=== PATIENT | female | born 1995 | race Caucasian/White ===

== ENCOUNTER 2020-10-22 09:19 | Inpatient (IN) ==
[2020-10-22] MEDS ORDERED: LIDOCAINE HCL 50 ML VIAL PERI PRN (09:21)
[2020-10-22] MEDS ORDERED: RINGER'S SOLUTION,LACTATED 1,000 ML IV ONE (09:21)
[2020-10-22] MEDS ORDERED: OXYTOCIN/0.9 % SODIUM CHLORIDE 30 UNITS/500 ML BAG IV ONE ×2 (09:21→14:14)
[2020-10-22] MEDS ORDERED: BUTORPHANOL TARTRATE 2 MG/ML VIAL IV PRN (09:21)
[2020-10-22] MEDS ORDERED: RINGER'S SOLUTION,LACTATED 1,000 ML IV PRN (09:21)
[2020-10-22] MEDS ORDERED: ONDANSETRON 4 MG TAB.RAPDIS PO PRN (09:21)
[2020-10-22] MEDS ORDERED: BUPIVACAINE HCL/0.9 % NACL/PF 250 ML EP PRN (09:52)
[2020-10-22] MEDS ORDERED: NALOXONE HCL 1 MG/1 ML SYRG IV PRN (09:52)
[2020-10-22] MEDS ORDERED: ONDANSETRON HCL/PF 2 MG/ML VIAL IV PRN (09:52)
[2020-10-22] MEDS ORDERED: BUPIVACAINE HCL/PF 30 ML VIAL EP SCH (10:00)
--- NOTE | 2020-10-22 10:05 | ANES ---
Anesthesia Pre Procedure Eval Vitals/Labs: Last Vital Signs Temp 36.6 C 10/22/20 09:53 Pulse 97 10/22/20 09:53 Resp 18 10/22/20 09:53 BP 128/83 10/22/20 09:53 Pulse Ox 99 10/22/20 09:53 HOME MEDICATIONS albuterol sulfate 90 mcg/actuation aerosol inhaler 2 inh IH Q4H PRN 05/22/20 [Last Taken Unknown] pediatric multivitamin no.76 2 tab PO DAILY tab 05/22/20 [Last Taken Unknown] famotidine 20 mg tablet 20 mg PO BID #60 tab 08/05/20 [Last Taken Unknown] fluoxetine 20 mg capsule 20 mg PO DAILY #30 cap 09/09/20 [Last Taken 09/24/20] hydroxyzine HCl 25 mg tablet 25 mg PO HS #30 tab 10/04/20 [Last Taken Unknown] cyclobenzaprine 10 mg tablet 10 mg PO TID PRN #20 tab 10/07/20 [Last Taken Un known] Allergies/Adverse Reactions: Allergies Allergy/AdvReac Type Severity Reaction Status Date / Time No Known Allergies Allergy Verified 10/21/20 14:13 - Planned Procedure Planned Procedure: Labor Epidural Medication List Reviewed:: Yes Allergies Verified: Yes Medical History (Last Reviewed 10/22/20 @ 10:05 by Avelino Longo CRNA) Anxiety and depression Chronic back pain Surgical History (Last Reviewed 10/22/20 @ 10:05 by Avelino Longo CRNA) No pertinent past surgical history Family History (Last Reviewed 10/22/20 @ 10:05 by Avelino Longo CRNA) Grandmother Cancer, Onset Age: 50 breast cancer Grandfather Cancer, Onset Age: 67 lung with paramjit to brain Mother Alive and well Father Alive and well - Anesthesia Assessment and Plan ASA Class: PS, II Anesthesia Type Plan: Epidural
--- NOTE | 2020-10-22 10:32 | ANES ---
Post Anesthesia Assessment - Vital Signs Vitals: Last Vital Signs Temp 36.6 C 10/22/20 10:10 Pulse 95 10/22/20 10:10 Resp 18 10/22/20 10:10 BP 123/80 10/22/20 10:10 Pulse Ox 100 10/22/20 10:10 Airway Patency: Normal - Mental Status Level Of Consciousness: Awake - N/V Assessment Nausea/Vomiting Presence: None Dehydration:: No
--- NOTE | 2020-10-22 10:32 | ANES ---
Anesthesia Procedure Note Procedure Note: ANESTHESIA PROCEDURE NOTE Date of Procedure: 10/22/2020. Time of procedure: 1015. Performed by: Avelino Longo CRNA Drafter Geophysical: None. Preprocedure diagnosis: Active labor. Post procedure diagnosis: Same. Procedure: Insertion of labor epidural. Indications: The patient is a 24-year-old female in active labor requesting labor epidural for pain management. Findings: See below. Details of the procedure: The patient was placed in a sitting position. DuraPrep as well as Betadine swabs X3 was applied to the patient's back. Patient was then draped in a sterile fashion. Lidocaine 1% was infiltrated to the skin and subcutaneous tissues at the level of the L3-4 interspace. The epidural space was identified using a 18-gauge Tuohy needle with [id number] technique. Epidural catheter was inserted to a depth of 12 centimeters at skin. Negative test dose was elicited using 3 mL of 1.5% preservative-free lidocaine plus epinephrine 1 200,000. The epidural catheter was then taped and secured in place. A loading dose of 8 mL of 0.25% preservative-free bupivacaine was administered to the epidural catheter after negative aspiration for blood and CSF. EBL: Minimal. Fluids: N/A. Specimen: N/A. Post procedure condition: The patient tolerated the procedure well. No complications were noted. Thank you for this consultation. Avelino Longo CRNA
--- NOTE | 2020-10-22 11:29 | ANES ---
Post Anesthesia Discharge - Transfer of Care Transfer of Care handoff given to nurse: Yes - Discharge from PACU Discharge from PACU when meets criteria: Yes - Anesthesia Post Op Note Anesthesia Post Op Note: I was called to the room 201 for breakthrough pain. She was complaining of pain in the lower left abdomen with contraction. In lateral and semifowler position 10 mL of bupivacaine 0.25% preservative-free was administered through the epidural catheter after a negative aspiration was confirmed. She is extremely anxious but the pain portion of the assessment appears to be accurate.
[2020-10-22 11:52] LABS: Cocaine Ur Negative (NEGATIVE); Urine Barbiturate Negative (NEGATIVE); Urine Benzodiazepines Negative (NEGATIVE); Urine Opiates Negative (NEGATIVE); Urine PCP Negative (NEGATIVE)
[2020-10-22 11:56] LABS: Urine THC Positive (NEGATIVE)
[2020-10-22] MEDS ORDERED: LIDOCAINE HCL/EPINEPHRINE 20 ML VIAL ONE (12:02)
--- NOTE | 2020-10-22 12:07 | HP ---
Chief Complaint - Chief Complaint Date of Service: 10/22/20 Time of Service: 11:56 Chief Complaint: Labor History of Present Illness: 24 year old at 40w 1d who presented to labor and delivery in labor. She denied vb or lof. She reports regular, painful ctx. Fetus is active. Medical History (Last Reviewed 10/22/20 @ 11:59 by Fay Foote MD) Anxiety and depression Chronic back pain Surgical History: Surgical History (Last Reviewed 10/22/20 @ 11:59 by Fay Foote MD) No pertinent past surgical history Family History: Family History (Last Reviewed 10/22/20 @ 11:59 by Fay Foote MD) Grandmother Cancer, Onset Age: 50 breast cancer Grandfather Cancer, Onset Age: 67 lung with paramjit to brain Mother Alive and well Father Alive and well Social History: (Last Reviewed 10/22/20 @ 11:59 by Fay Foote MD) Social History: adopted: No Marital status: Single household members: children current occupational status: unemployed current occupational exposures/hazards: No Highest level of school completed/degree received: high school graduate Service: No Tobacco: Smoking Status: Never smoker Alcohol: alcohol intake: never Substance Use: substance use type: does not use Dietary Habits: caffeine: Yes Type: carbonated beverages Review Of Systems (GEN) - Review of Systems Generalized/Overall Review: Present: No Symptoms Reported Genitourinary: Present: Other - painful ctx Endocrine: Present: No Symptoms Reported Allergies/Adverse Reactions: Allergies Allergy/AdvReac Type Severity Reaction Status Date / Time No Known Allergies Allergy Verified 10/21/20 14:13 Home Medications: HOME MEDICATIONS albuterol sulfate 90 mcg/actuation aerosol inhaler 2 inh IH Q4H PRN 05/22/20 [Last Taken Unknown] pediatric multivitamin no.76 2 tab PO DAILY tab 05/22/20 [Last Taken Unknown] famotidine 20 mg tablet 20 mg PO BID #60 tab 08/05/20 [Last Taken Unknown] fluoxetine 20 mg capsule 20 mg PO DAILY #30 cap 09/09/20 [Last Taken 09/24/20] hydroxyzine HCl 25 mg tablet 25 mg PO HS #30 tab 10/04/20 [Last Taken Unknown] cyclobenzaprine 10 mg tablet 10 mg PO TID PRN #20 tab 10/07/20 [Last Taken Unkn own] Exam - Exam Vital Signs: Vital Signs - Last Taken Temp 36.6 C 10/22/20 10:10 Pulse 95 10/22/20 10:10 Resp 18 10/22/20 10:10 BP 123/80 10/22/20 10:10 Pulse Ox 100 10/22/20 10:10 Constitutional: Present: Alert, Oriented x3, Cooperative, No distress ENT Exam: Present: hearing grossly normal Eye Exam: bilateral eye: normal inspection Neck: Present: normal inspection Back Exam: Present: normal inspection Breasts: Present: Exam deferred Respiratory: Present: lungs clear, normal breath sounds, no respiratory distress Cardiovascular/Chest: Present: regular rate, rhythm Abdomen: Present: Normal bowel sounds, soft, nontender, nondistended, no rebound tenderness /Rectal: Present: Other - 5/80/-2 AROM for clear fluid Extremity: Present: non-tender, no calf tenderness Skin Exam: Present: normal color, warm/dry, no cyanosis Neurologic: Present: alert, normal mood/affect, oriented x 3 Appearance: Present: appropriate appearance, appropriate insight, neat, no memory impairment Eye contact: Present: good eye contact, normal speech Thoughts: Present: normal thought pattern Diagnostic Studies: Laboratory Results Blood Type A Negative 10/22/20 09:05 Antibody Screen Positive 10/22/20 09:05 Assessment/Plan - Narrative Narrative: 24 year old at 40w 1d 1. Active labor. AROM for augmentation of labor. Straight cath performed with only 5 mL of urine obtained. Reassess cervical exam and if no change two hours after AROM will start pitocin 2. GBS negative: prophylaxis not indicated 3. History of THC use this : UDS negative on admission to L&D 4. Rh negative: s/p Rhogam - Assessment/Plan (1) Active labor at term Problem: Acute (2) 40 weeks gestation of Problem: Acute (3) Depression affecting Problem: Acute (4) RhD negative Problem: Acute (5) Anxiety Problem: Acute (6) Marijuana use Problem: Acute (7) Asthma Problem: Acute Qualifiers: Asthma severity: mild Asthma persistence: intermittent Asthma complication type: uncomplicated Qualified Code(s): J45.20 - Mild intermittent asthma, uncomplicated
--- NOTE | 2020-10-22 12:30 | ANES ---
Anesthesia Procedure Note Procedure Note: ANESTHESIA PROCEDURE NOTE Date of Procedure: 10/22/2020. Time of procedure: 1210. Performed by: Avelino Longo CRNA Zoning Administrator: None. Preprocedure diagnosis: Active labor. Post procedure diagnosis: Same. Procedure: Removal and reinsertion of labor epidural. Indications: The patient is a 24-year-old female in active labor with a labor epidural that appears to be intravenous. Findings: See below. Details of the procedure: The patient was placed in a sitting position. Dark red blood was noted to the epidural catheter. The epidural catheter was removed intact. DuraPrep as well as Betadine swabs X3 was applied to the patient's back. Patient was then draped in a sterile fashion. Lidocaine 1% was infiltrated to the skin and subcutaneous tissues at the level of the L3-4 interspace. The epidural space was identified using a 18-gauge Tuohy needle with [id number] technique. Epidural catheter was inserted to a depth of 3 centimeters at skin. Negative test dose was elicited using 3 mL of 1.5% preservative-free lidocaine plus epinephrine 1 200,000. The epidural catheter was then taped and secured in place. EBL: Minimal. Fluids: N/A. Specimen: N/A. Post procedure condition: The patient tolerated the procedure well. No complications were noted. Thank you for this consultation. Avelino Longo CRNA
[2020-10-22] MEDS ORDERED: GLYCERIN/WITCH HAZEL LEAF 40 APPL BOX TP PRN (14:14)
[2020-10-22] MEDS ORDERED: HYDROcodone/ACETAMINOPHEN 1 EACH TABLET PO PRN ×2 (14:14)
[2020-10-22] MEDS ORDERED: BENZOCAINE/MENTHOL 81 SPRAY CAN TP PRN (14:14)
[2020-10-22] MEDS ORDERED: BISACODYL 10 MG SUPP.RECT RC PRN (14:14)
[2020-10-22] MEDS ORDERED: diphenhydrAMINE HCL 25 MG CAPSULE PO PRN (14:14)
[2020-10-22] MEDS ORDERED: IBUPROFEN 800 MG TABLET PO PRN (14:14)
[2020-10-22] MEDS ORDERED: SENNOSIDES 8.6 MG TABLET PO PRN (14:14)
[2020-10-22] MEDS ORDERED: HYDROCORTISONE 30 APPL TUBE TP PRN (14:14)
[2020-10-22] MEDS ORDERED: ALBUTEROL SULFATE 2.5 MG/0.5 ML VIAL.NEB IH PRN (14:15)
--- NOTE | 2020-10-22 14:24 | OR ---
Operative Report - Dictated Report Narrative: Date of delivery: 10/22/2020 Time of delivery: 1359 Gender: female weight: 3267 grams APGARS: 8/9 Procedure: Description of the procedure: The patient is a 24 year old at 40w 1d who presented to L&D in labor. She underwent AROM for augmentation and progressed to complete dilation. She delivered a viable female infant in direct OA presentation. There was a loose nuchal cord x4 which was reduced prior to delivery. The shoulders delivered without any difficulty followed by the rest of the infant. Cord clamping was delayed for 60 seconds due to vigorous infant. The cord was clamped and cut. Cord blood was collected. There was avulsion of the umbilical cord. The placenta was removed manually in several fragments. There were no lacerations. EBL: 100 mL Complications: none Specimens: cord blood History for MU Definition: * The number of deliveries resulting in a live the patient experienced prior to current hospitalization * The previous delivery of live twins or any live multiple gestation is considered one live event. *If primagravida or nulliparous is documented select zero for the number of previous live births. Live Events: 1
[2020-10-22] MEDS ORDERED: ceFAZolin SODIUM 1 GM VIAL IV ONE (15:24)
[2020-10-22] MEDS ORDERED: ceFAZolin SODIUM 2 GM in DEXTROSE 5 % IN WATER 50 ML IV SCH ×2 (16:15)
[2020-10-22] MEDS ORDERED: RHO(D) IMMUNE GLOBULIN 1,500 UNIT SYRINGE IM ONE (17:28)
[2020-10-22] MEDS: DOCUSATE SODIUM 100 MG CAPSULE PO SCH (20:56)
[2020-10-22] MEDS ORDERED: hydrOXYzine HCL 25 MG TABLET PO SCH (21:00)
--- NOTE | 2020-10-23 08:21 | PN ---
Subjective - Date and Time Seen Date: 10/23/20 Time: 08:16 Subjective Narrative: Patient without complaints Objective Objective Narrative: See vital signs - Review of Systems Generalized/Overall Review: Reports: No Symptoms Reported Misc: All systems neg except as marked - Vitals Vitals: Last Vital Signs Temp 36.3 C 10/23/20 07:00 Pulse 75 10/23/20 07:00 Resp 18 10/23/20 07:00 BP 104/58 10/23/20 07:00 Pulse Ox 99 10/23/20 07:00 - Abnormal Lab Findings Abnormal Lab Findings: Abnormal Lab Results 10/22/20 Range/Units 10:55 Urine Marijuana (THC) Positive H (NEGATIVE) - Exam Constitutional: Present: Alert, Oriented x3, Cooperative, No distress Abdomen: Present: soft, nontender, nondistended - fundus is firm Extremity: Present: non-tender, no calf tenderness Skin Exam: Present: normal color, warm/dry, no cyanosis Neurologic: Present: alert, normal mood/affect, oriented x 3 Appearance: Present: appropriate appearance, appropriate insight, neat, no memory impairment Eye contact: Present: cooperative, good eye contact, normal speech Thoughts: Present: normal thought pattern Cauti Physician Documentation - Urinary Catheter Management Urethral (Roberto) Urethral Indwelling: No Date of Insertion: 10/22/20 Time of Insertion: 10:45 Date of Removal: 10/22/20 Time of Removal: 11:30 Assessment/Plan Plan Narrative: PPD 1 s/p Doing well Discharge today if baby cleared by peds - Problems/Diagnosis (1) Active labor at term Problem: Acute (2) 40 weeks gestation of Problem: Acute (3) Depression affecting Problem: Acute (4) RhD negative Problem: Acute (5) Anxiety Problem: Acute (6) Marijuana use Problem: Acute (7) Asthma Problem: Acute Qualifiers: Asthma severity: mild Asthma persistence: intermittent Asthma complication type: uncomplicated Qualified Code(s): J45.20 - Mild intermittent asthma, uncomplicated
[2020-10-23] MEDS: DOCUSATE SODIUM 100 MG CAPSULE PO SCH (08:42)
[2020-10-23] MEDS ORDERED: MEDROXYPROGESTERONE ACET 150 MG/ML SYRG IM ONE (09:00)
[2020-10-23] MEDS ORDERED: FLUoxetine HCL 20 MG CAPSULE PO SCH (09:00)
[2020-10-23] MEDS ORDERED: MULTIVITAMINS 1 TAB TAB.CHEW PO SCH (09:00)
[2020-10-23] MEDS ORDERED: RHO(D) IMMUNE GLOBULIN 1,500 UNIT SYRINGE IM ONE (11:00)
[2020-10-23 11:51] VITALS: BP 128/76
--- NOTE | 2020-10-23 12:22 | DS ---
OB Discharge Summary (1) Active labor at term Status: Acute (2) 40 weeks gestation of Status: Acute (3) Depression affecting Status: Acute (4) RhD negative Status: Acute (5) Anxiety Status: Acute (6) Marijuana use Status: Acute (7) Asthma Status: Acute Qualifiers: Asthma severity: mild Asthma persistence: intermittent Asthma complication type: uncomplicated Qualified Code(s): J45.20 - Mild intermittent asthma, uncomplicated Delivery Date: 10/22/20 Delivery Time: 13:59 :: 3 Para:: 2 Gestational weeks:: 40 Gestational days:: 1 Intrapartum Procedures: Spontaneous Vaginal Delivery, Anesthesia - Epidural Procedures: Antibiotics1 /OP Complications: Other - manual removal of the placenta Discharge Diagnosis: Term -Delivered - Discharge Information Discharge Location: Home Disposition: Home self-care Referrals: Gayle Barbosa DO [Primary Care Provider] - Activity on Discharge:: Activity as tolerated, Pelvic Rest Discharge Diet: General/regular food Additional Patient Instructions (free text): Lovely will see Dr. Foote in the office on Wednesday November 27, 2019 at 9:30 am. Continue to take your vitamins one daily. Drink plenty of fluids, lean meat and lots of fruits and vegetables. Rest when your baby rests. Aliza will follow up with Beatris De León on Wednesday10/25/2020 @ 08:30AM with Dr Wellington. Feed Aliza every 3-4 hours burping after every 1/2 oz. Always use safe sleeping practices, always place baby on their back to sleep in their own bed. No stuffed animals, bumper pad, heavy blankets in sleeping area. Aliza blood type is O positive, she has passed her hearing screen in both ears, Thank you for choosing [facility] for your special event. If you have any concerns, or questions please call the [facility] [phone], [facility] [phone] or Peds [phone]. Complete Home Medications List: Complete Home Medication List: albuterol sulfate 90 mcg/actuation aerosol inhaler 2 inh IH Q4H PRN 05/22/20 pediatric multivitamin no.76 2 tab PO DAILY tab 05/22/20 fluoxetine 20 mg capsule 20 mg PO DAILY #30 cap 09/09/20 hydroxyzine HCl 25 mg tablet 25 mg PO HS #30 tab 10/04/20 - Plan Discharge to:: Home Comment:: Routine Discharge Instructions Follow up in office in:: 6 weeks - Information Weight (Grams): 3,267 Infant Sex: Female Score 1 min: 8 Score 5 min: 9 Circumcision: Not Applicable Complications: None
== END 2020-10-23 17:30 | disposition home or self-care (01) | DRG 807 ==
LOC: OB 09:19
PROVIDERS: ADMIT Obstetrics & Gynecology; ATTEND Obstetrics & Gynecology